=== PATIENT | female | born 1975 | race Caucasian/White ===

== ENCOUNTER → 2016-07-09 | Outpatient (CLI) | payer BC ==
--- NOTE | 2016-07-09 14:54 | CR ---
EXAMINATION: Double contrast upper GI HISTORY: Gastroesophageal reflux COMPARISON: None TECHNIQUE: A standard double contrast upper GI was performed. FINDINGS: The patient swallowed barium without difficulty. The esophagus is normal in caliber withou t filling defect or stricture. The esophageal motility appears normal. Mild gastroesophageal reflux noted. The stomach is normally distensible. The rugal full pattern is normal. No filling defect or ulcerati on. The duodenal bulb and sweep are normal. IMPRESSION: Mild gastroesophageal reflux, otherwise unremarkable upper GI.
== END ==
LOC: MW.DI 08:32
PROVIDERS: ATTEND Surgery
DX: K21.9 Gastro-esophageal reflux disease without esophagitis (principal)
CPT/HCPCS: 74246; 74246-26

== ENCOUNTER → 2016-08-20 | Outpatient (CLI) | payer BC ==
--- NOTE | 2016-08-20 15:04 | CR ---
EXAMINATION: Two-view chest (PA and Lateral views). HISTORY: Preprocedural examination. FINDINGS: The trachea is midline. The cardiomediastinal silhouette is within normal limits. No pulmonary infil trates, effusions or pneumothorax. Osseous structures appear unremarkable. IMPRESSION: No acute cardiopulmonary process.
== END ==
LOC: MW.CHFP 08:52
PROVIDERS: ATTEND Emergency Medicine
DX: Z01.818 Encounter for other preprocedural examination (principal)
CPT/HCPCS: 71020; 71020-26; 93005

== ENCOUNTER → 2016-08-21 | Outpatient (CLI) | payer BC ==
[2016-08-21 08:53] LABS: CHLORIDE,CL 106 mmol/L (98-110); SODIUM,NA 140 mmol/L (136-146)
== END ==
LOC: MW.CHFP 08:03
PROVIDERS: ATTEND Emergency Medicine
DX: Z01.818 Encounter for other preprocedural examination (principal)
CPT/HCPCS: 36415; 80053; 80061; 81001; 84439; 84443; 85027; 85730

== ENCOUNTER → 2016-08-23 | Outpatient (CLI) | payer BC | LOC: MW.CHFP 15:27 | PROVIDERS: ATTEND Emergency Medicine | DX: Z01.818 Encounter for other preprocedural examination (principal) | CPT/HCPCS: 36415; 85610 ==

== ENCOUNTER 2021-11-12 10:32 | Emergency (ER) | payer BC ==
[2021-11-12 11:22] VITALS: BP 123/78; PULSE 71
[2021-11-12] MEDS ORDERED: Dexamethasone 10 MG/ML SDV IM STA (11:38)
[2021-11-12] MEDS ORDERED: Diazepam 5 MG Tab PO STA (11:39)
[2021-11-12] MEDS ORDERED: Acetaminophen/oxyCODONE 325-10 MG Tab PO ONE (11:39)
== END 2021-11-12 12:22 | disposition home or self-care (01) ==
LOC: MW.ED 10:32
DX: S39.012A Strain of muscle, fascia and tendon of lower back, initial encounter (principal); M62.830 Muscle spasm of back; X50.0XXA Overexertion from strenuous movement or load, initial encounter
CPT/HCPCS: 96372; 99283; A9270; J1100

== ENCOUNTER 2023-08-17 14:22 | Emergency (ER) | payer OTHER, BC ==
[2023-08-17 19:12] VITALS: BP 124/83; PULSE 81
== END 2023-08-17 17:31 | disposition home or self-care (01) ==
LOC: MW.ED 14:22
DX: M79.674 Pain in right toe(s) (principal); K21.9 Gastro-esophageal reflux disease without esophagitis; Z79.899 Other long term (current) drug therapy; Z86.19 Personal history of other infectious and parasitic diseases; Z90.49 Acquired absence of other specified parts of digestive tract; Z75.8 Other problems related to medical facilities and other health care
CPT/HCPCS: 73660-26-T6; 73660-T6; 99283

== ENCOUNTER 2025-02-16 15:01 | Emergency (ER) | payer OTHER ==
[2025-02-16] MEDS ORDERED: Sodium Chloride 0.9% 2.5 ML Syringe FLUSH PRN (15:09)
[2025-02-16] MEDS ORDERED: Sodium Chloride 0.9% 10 ML Syringe FLUSH PRN (15:09)
[2025-02-16 15:40] LABS: BASOPHILS ABSOLUTE AUTO 0.07 K/uL (0.00-0.20); BASOPHILS PERCENT AUTO 0.7 % (0.0-1.0); EOSINOPHILS ABSOLUTE AUTO 0.12 K/uL (0.00-0.45); EOSINOPHILS PERCENT AUTO 1.2 % (0.0-6.0); IMMATURE GRAN ABSOLUTE AUTO 0.02 K/uL (0.00-0.05); IMMATURE GRAN PERCENT AUTO 0.2 % (0.0-0.4); LYMPHOCYTES ABSOLUTE AUTO 2.31 K/uL (1.00-4.80); LYMPHOCYTES PERCENT AUTO 22.4 % (24.0-44.0); MEAN PLATELET VOLUME 10.8 fL (9.4-12.3); MONOCYTES ABSOLUTE AUTO 0.56 K/uL (0.00-0.80); MONOCYTES PERCENT AUTO 5.4 % (0.0-8.0); NEUTROPHILS ABSOLUTE AUTO 7.24 K/uL (1.80-7.70); NEUTROPHILS PERCENT AUTO 70.1 % (41.0-71.0); NRBC ABSOLUTE 0.00 K/uL (0.00-0.02); NRBC PERCENT 0.0 /100WBC (0.0-0.2); PLATELET COUNT,PLT 193 K/uL (150-400); RED BLOOD CELL COUNT 4.30 M/uL (4.10-5.30); WHITE BLOOD CELL COUNT,WBC 10.32 K/uL (3.9-11.3)
[2025-02-16] MEDS: Ondansetron 4 MG/2 ML SDV IVPUSH ONE (15:47)
[2025-02-16 16:27] LABS: A/G RATIO 1.0 (0.9-1.6); ALANINE AMINOTRANSFERASE,ALT 26 IU/L (14-63); ASPARTATE AMNIOTRANSFERASE,AST 19 IU/L (15-37); BILIRUBIN TOTAL 0.3 mg/dL (0.2-1.0); BLOOD UREA NITROGEN,BUN 11 mg/dL (7.0-18.0); CARBON DIOXIDE,CO2 28.3 mmol/L (21.0-32.0); CHLORIDE,CL 104 mmol/L (98-107); CREATININE 0.8 mg/dL (0.6-1.0); EST CRCL DRUG DOSING (CG) 71.14 mL/min; GLUCOSE RANDOM 85 mg/dL (74-106); POTASSIUM,K 3.5 mmol/L (3.5-5.1); PRO B-TYPE NATRIUR PEPT,BNPPRO 56 pg/mL (0-125); PROTEIN TOTAL,TP 6.7 g/dL (6.4-8.2); SODIUM,NA 140 mmol/L (136-145); TSH ULTRASENSITIVE 1.86 uIU/mL (0.36-3.74)
[2025-02-16 16:28] LABS: ESTIMATED GFR 91 mL/min (>60)
[2025-02-16] MEDS: Alum Hydrox/Mag Hydrox/Simeth 15 ML, Metoclopramide 5 MG, Lidocaine 2% 5 ML PO ONE (17:02)
[2025-02-16] MEDS: Iopamidol 755 MG/ML 500 ML Multipack Bottle IVPUSH STA (17:19)
[2025-02-16 17:44] LABS: APPEARANCE,URINE CLEAR; GLUCOSE,URINE NEGATIVE (NEGATIVE); OCCULT BLOOD,URINE NEGATIVE (NEGATIVE)
[2025-02-16 18:14] VITALS: BP 107/74; PULSE 67
== END 2025-02-16 18:13 | disposition home or self-care (01) ==
LOC: MW.ED 15:01
DX: R07.9 Chest pain, unspecified (principal); E86.0 Dehydration; Z90.49 Acquired absence of other specified parts of digestive tract; Z90.710 Acquired absence of both cervix and uterus; Z79.899 Other long term (current) drug therapy; Z75.3 Unavailability and inaccessibility of health-care facilities
CPT/HCPCS: 36415; 71045; 71275; 80053; 81003; 83735; 83880; 84443; 84484; 85025; 93005; 96361; 96374; 96375; 99285; A9270; J2270; J2405; J3490; J7030; Q9967; 93010; 99284